=== PATIENT | male | born 1955 | race Caucasian/White ===

== ENCOUNTER 2017-07-19 10:15 | Day surgery (SDC) | END 2017-07-19 14:33 | disposition home or self-care (01) ==

== ENCOUNTER 2017-07-24 00:31 | Inpatient (IN) | END 2017-08-03 21:30 | DRG 871 ==

== ENCOUNTER 2017-08-23 11:30 | Day surgery (SDC) | END 2017-08-23 17:39 | disposition home or self-care (01) ==